=== PATIENT | male | born 1985 | race Caucasian/White ===

== ENCOUNTER 2018-03-19 12:39 | Emergency (ER) | payer BC ==
[2018-03-19 13:04] VITALS: BP 118/69
--- NOTE | 2018-03-19 13:35 | ED ---
Lower Extremity - HPI Summary HPI Summary: C/O RT POSTERIOR HEEL PAIN, SWELLING, BRUISING AFTER FALLING WHILE TRYING TO SPRINT UP A RAMP PAST MONDAY NIGHT. DENIES HEARING POP OR FEELING PAIN. STATES LEG GAVE OUT WHEN HE TRIED TO STAND UP AFTER. PAIN IS RATED 2/10 CURRENTLY, WORSE IN AM WHEN HE WAKES UP.. PT AMBULATING WITH CRUTCHES, STATES HE CAN BEAR WEIGHT. DENIES LOSS OF SENSATION, OTHJER INJURIES OR SX. DENIES RECENT ABX USE. - History of Current Complaint Chief Complaint: UCLowerExtremity Stated Complaint: LEG INJURY Hx Obtained From: Patient Mechanism Of Injury: Fall From A Standing Position Onset/Duration: Days Severity Initially: Mild Severity Currently: Mild Pain Intensity: 8 Pain Scale Used: 0-10 Numeric Timing: Constant Location: Is Discrete @ Character Of Pain: Throbbing Associated Signs And Symptoms: Positive: Swelling, Bruising Aggravating Factor(s): Standing, Movement Alleviating Factor(s): Rest, Elevation Able to Bear Weight: Yes - Allergies/Home Medications Allergies/Adverse Reactions: Allergies Allergy/AdvReac Type Severity Reaction Status Date / Time No Known Allergies Allergy Verified 03/19/18 13:03 Home Medications: Home Medications Cholecalciferol TAB* [Vitamin D TAB*] 1,000 unit PO DAILY 03/19/18 [History Confirmed 03/19/18] Fulvic 1 tab PO DAILY 03/19/18 [History Confirmed 03/19/18] Glucosam/Chond-MSM 2/C/D3/David [Oujxmveoaf-Frwywbjzdva-INP Tab] 1 each PO BID [History Confirmed 03/19/18] L.acidoph,Paracasei, B.lactis [Probiotic] 1 each PO DAILY 03/19/18 [History Confirmed 03/19/18] Multivit-Min/Iron Fum/Folic AC [Multi Vitamin and Mineral] 1 tab PO DAILY [History Confirmed 03/19/18] Sanborn-3 Fatty Acids/Fish Oil [Fish Oil 1,000 mg Capsule] 1 each PO DAILY [History Confirmed 03/19/18] Turmeric Root Extract [Ra Turmeric] 500 mg PO DAILY 03/19/18 [History Confirmed 03/19/18] PMH/Surg Hx/FS Hx/Imm Hx Endocrine/Hematology History: Denies: Hx Anticoagulant Therapy Cardiovascular History: Denies: Hx Cardiac Arrest History: Denies: Hx Dialysis Neurological History: Denies: Hx CVA Infectious Disease History: No Infectious Disease History: Denies: Traveled Outside the [place] in Last 30 Days - Family History Known Family History: Positive: Unknown - Social History Alcohol Use: Rare Substance Use Type: Reports: None Smoking Status (MU): Never Smoked Tobacco Review of Systems Constitutional: Negative Eyes: Negative ENT: Negative Cardiovascular: Negative Respiratory: Negative Gastrointestinal: Negative Genitourinary: Negative Musculoskeletal: Other Skin: Other Positive: Bruising Neurological: Negative Psychological: Normal All Other Systems Reviewed And Are Negative: Yes Physical Exam - Summary Physical Exam Summary: + THOMPSONS TEST (NO PLANTAR FLEXION WITH COMPRESSION OF CALF). + ECCHYMOSIS, SWELLING TO RT HEEL AND ANKLE. WEAK PLANTAR FLEXION, PAIN WITH DORSAL FLEXION. ACHILLES TENDON IS NOT VISIBLE AND CANNOT BE PALPATED. NO PROXIMAL MUSCLE RETRACTION NOTED TO POSTERIOR LOWER EXTREMITY. PMS INTACT DISTALLY. Triage Information Reviewed: Yes Vital Signs On Initial Exam: Initial Vitals Temp Pulse Resp BP Pulse Ox 98.6 F 64 14 118/69 100 03/19/18 12:54 03/19/18 12:54 03/19/18 12:54 03/19/18 12:54 03/19/18 12:54 Appearance: Positive: Well-Appearing Skin: Positive: Warm Head/Face: Positive: Normal Head/Face Inspection Eyes: Positive: Normal Neck: Positive: Supple Respiratory/Lung Sounds: Positive: Clear to Auscultation Cardiovascular: Positive: Normal Abdomen Description: Positive: Nontender Musculoskeletal: Positive: Other Neurological: Positive: Normal Psychiatric: Positive: Normal AVPU Assessment: Alert - [place] Coma Scale Best Eye Response: 4 - Spontaneous Best Motor Response: 6 - Obeys Commands Best Verbal Response: 5 - Oriented Coma Scale Total: 15 Diagnostics - Vital Signs Vital Signs Temp Pulse Resp BP Pulse Ox 03/19/18 12:54 98.6 F 64 14 118/69 100 - Laboratory Lab Statement: Any lab studies that have been ordered have been reviewed, and results considered in the medical decision making process. Lower Extremity Course/Dx - Course Course Of Treatment: C/O RT POSTERIOR HEEL PAIN, SWELLING, BRUISING AFTER FALLING WHILE TRYING TO SPRINT UP A RAMP PAST MONDAY NIGHT. DENIES HEARING POP OR FEELING PAIN. STATES LEG GAVE OUT WHEN HE TRIED TO STAND UP AFTER. PAIN IS RATED 2/10 CURRENTLY, WORSE IN AM WHEN HE WAKES UP.. PT AMBULATING WITH CRUTCHES, STATES HE CAN BEAR WEIGHT. DENIES LOSS OF SENSATION, OTHJER INJURIES OR SX. DENIES RECENT ABX USE. PHYSICAL EXAM: + THOMPSONS TEST (NO PLANTAR FLEXION WITH COMPRESSION OF CALF). + ECCHYMOSIS, SWELLING TO RT HEEL AND ANKLE. WEAK PLANTAR FLEXION, PAIN WITH DORSAL FLEXION. ACHILLES TENDON IS NOT VISIBLE AND CANNOT BE PALPATED. NO PROXIMAL MUSCLE RETRACTION NOTED TO POSTERIOR LOWER EXTREMITY. PMS INTACT DISTALLY. SHORT POSTERIOR SPLINT WITH MILD PLANTAR FLEXION. FOLLOW UP WITH ORHOPEDICS DR MARINO. PT HAS CRUTCHES. ICE, ELEVATION, REST. - Diagnoses Provider Diagnoses: Achilles tendon rupture Discharge - Sign-Out/Discharge Documenting (check all that apply): Patient Departure - Discharge Plan Condition: Good Disposition: HOME Patient Education Materials: Achilles Tendon Rupture (ED), Achilles Tendon Repair (DC) Referrals: Rakesh Yu MD [Primary Care Provider] - Katey Marino MD [Medical Doctor] - Additional Instructions: Lower Extremity - History of Current Complaint Chief Complaint: UCLowerExtremity Stated Complaint: LEG INJURY Pain Intensity: 8 - Allergies/Home Medications Allergies/Adverse Reactions: Allergies Allergy/AdvReac Type Severity Reaction Status Date / Time No Known Allergies Allergy Verified 03/19/18 13:03 Home Medications: Home Medications Cholecalciferol TAB* [Vitamin D TAB*] 1,000 unit PO DAILY 03/19/18 [History Confirmed 03/19/18] Fulvic 1 tab PO DAILY 03/19/18 [History Confirmed 03/19/18] Glucosam/Chond-MSM 2/C/D3/David [Edqfbczccy-Jxssnhmadph-IDE Tab] 1 each PO BID [History Confirmed 03/19/18] L.acidoph,Paracasei, B.lactis [Probiotic] 1 each PO DAILY 03/19/18 [History Confirmed 03/19/18] Multivit-Min/Iron Fum/Folic AC [Multi Vitamin and Mineral] 1 tab PO DAILY [History Confirmed 03/19/18] Sanborn-3 Fatty Acids/Fish Oil [Fish Oil 1,000 mg Capsule] 1 each PO DAILY [History Confirmed 03/19/18] Turmeric Root Extract [Ra Turmeric] 500 mg PO DAILY 03/19/18 [History Confirmed 03/19/18] PMH/Surg Hx/FS Hx/Imm Hx Infectious Disease History: No Infectious Disease History: Denies: Traveled Outside the [place] in Last 30 Days - Social History Alcohol Use: Rare Substance Use Type: Reports: None Smoking Status (MU): Never Smoked Tobacco Physical Exam Vital Signs On Initial Exam: Initial Vitals Temp Pulse Resp BP Pulse Ox 98.6 F 64 14 118/69 100 03/19/18 12:54 03/19/18 12:54 03/19/18 12:54 03/19/18 12:54 03/19/18 12:54 Diagnostics - Vital Signs Vital Signs Temp Pulse Resp BP Pulse Ox 03/19/18 12:54 98.6 F 64 14 118/69 100 - Laboratory Lab Statement: Any lab studies that have been ordered have been reviewed, and results considered in the medical decision making process. Lower Extremity Course/Dx - Diagnoses Provider Diagnoses: Achilles tendon rupture Discharge - Sign-Out/Discharge Documenting (check all that apply): Patient Departure - Discharge Plan Condition: Good Disposition: HOME Patient Education Materials: Achilles Tendon Rupture (ED), Achilles Tendon Repair (DC) Referrals: Rakesh Yu MD [Primary Care Provider] - Katey Marino MD [Medical Doctor] - Additional Instructions: FOLLOW UP WITH ORTHOPEDICS DR MARINO FOR FURTHER EVALUATION OF RT ACHILLES PAIN AND POSSIBLE RUPTURE. - Billing Disposition and Condition Condition: GOOD Disposition: Home FOLLOW UP WITH ORTHOPEDICS DR MARINO FOR FURTHER EVALUATION OF RT ACHILLES PAIN AND POSSIBLE RUPTURE. REST, ICE, ELEVATION - Billing Disposition and Condition Condition: GOOD Disposition: Home
== END 2018-03-19 13:45 | disposition home or self-care (01) ==
LOC: UCEAST 12:39
DX: S86.011A Strain of right Achilles tendon, initial encounter (principal); X58.XXXA Exposure to other specified factors, initial encounter; Y93.89 Activity, other specified; Y92.9 Unspecified place or not applicable
CPT/HCPCS: 99201; G0463